=== PATIENT | female | born 1955 | race Hispanic/Latino ===

== ENCOUNTER 2023-02-20 06:13 | Day surgery (SDC) | payer OTHER ==
[2023-02-15 15:07] LABS: BASOPHILS # (AUTO) 0.05 K/uL (0.00-0.20); BASOPHILS % (AUTO) 0.6 % (0.0-5.0); EOSINOPHILS # (AUTO) 0.27 K/uL (0.00-0.70); EOSINOPHILS % (AUTO) 3.1 % (0.0-8.0); HEMATOCRIT 42.8 % (36-48); IMMATURE GRANULOCYTE ABSOLUTE 0.04 K/uL (0-1); LYMPHOCYTES # (AUTO) 2.5 K/uL (1.0-4.8); LYMPHOCYTES % (AUTO) 28.6 % (21.0-51.0); MEAN CORPUSCULAR HGB CONC 30.6 g/dL (32.0-36.0); MEAN CORPUSCULAR VOLUME 88.1 fL (79-99); MONOCYTES # (AUTO) 0.7 K/uL (0.1-1.0); MONOCYTES % (AUTO) 8.4 % (3.0-13.0); NEUTROPHILS # (AUTO) 5.2 K/uL (1.8-7.7); NEUTROPHILS % (AUTO) 58.8 % (40.0-77.0); PLATELET COUNT (AUTO) 361 K/uL (130-400); RED BLOOD CELL COUNT(AUTO) 4.86 MIL/uL (4.00-5.50); RED CELL DISTRIBUTION WIDTH 14.6 % (11.0-15.5); WHITE BLOOD COUNT (AUTO) 8.8 K/uL (4.8-10.8)
[2023-02-15 15:12] VITALS: PULSE 60; RESP 20
[2023-02-15 15:17] LABS: CREATININE 0.6 mg/dL (0.5-1.5)
[2023-02-15 15:18] LABS: INR 1.04 (0.85-1.15)
[2023-02-15 15:19] LABS: PARTIAL THROMBOPLASTIN TIME 30.4 SEC (26.3-35.5)
[~2023-02-20] VITALS: Ht 152.4 cm; Wt 72.6 kg
[2023-02-20] VITALS (17 sets, daily range): BP systolic 129–174; BP diastolic 67–90; PULSE 61–93; RESP 13–22
[~2023-02-20 06:13] MED LIST: GABA-529 PO; LISI20TA24 PO
[2023-02-20] MEDS ORDERED: MEROPENEM 1 GM VIAL ONE (06:55)
[2023-02-20] MEDS ORDERED: LACTATED RINGERS 1000ML 1,000 ML IV ONE (06:55)
[2023-02-20] MEDS ORDERED: INVANZ 1GM+NS 50ML IVPB 50 ML IV ONE (07:00)
[2023-02-20] MEDS ORDERED: BUPIVACAINE/PF 0.5% 30ML VIAL ONE (07:32)
[2023-02-20] MEDS ORDERED: LIDOCAINE HCL 1% MDV 50ML VIAL ONE (07:33)
[2023-02-20] MEDS ORDERED: PROPOFOL 10 MG/ML 20ML VIAL IV ONE (07:53)
[2023-02-20] MEDS ORDERED: MIDAZOLAM HCL 1 MG/ML 2ML VIAL ONE (07:53)
[2023-02-20] MEDS ORDERED: FENTANYL CITRATE PF 50 MCG/1 ML 2ML VIAL ONE (07:54)
[2023-02-20] MEDS ORDERED: ROCURONIUM BROMIDE 10MG/1ML 5ML VL ONE (08:03)
[2023-02-20] MEDS ORDERED: GLYCOPYRROLATE 1 MG/5 ML SYRINGE ONE (08:17)
[2023-02-20] MEDS ORDERED: NEOSTIGMINE 5MG/5ML SYR IV ONE (08:33)
[2023-02-20] MEDS ORDERED: HYDRALAZINE 20MG/ML VIAL ONE (09:09)
== END 2023-02-20 10:55 | disposition home or self-care (01) ==
LOC: DAH 06:13
PROVIDERS: ATTEND Surgery
DX: R15.9 Full incontinence of feces (principal); L85.9 Epidermal thickening, unspecified; K62.3 Rectal prolapse; L29.0 Pruritus ani; K62.89 Other specified diseases of anus and rectum; K64.1 Second degree hemorrhoids; A63.0 Anogenital (venereal) warts; I10 Essential (primary) hypertension; Z79.899 Other long term (current) drug therapy; Z82.49 Family history of ischemic heart disease and other diseases of the circulatory system; Z80.9 Family history of malignant neoplasm, unspecified; Z72.89 Other problems related to lifestyle; Z90.711 Acquired absence of uterus with remaining cervical stump; Z98.890 Other specified postprocedural states
CPT/HCPCS: 80048; 85025; 85610; 85730; 36415; 93005; 45100; 64430; 88304; A6260; A4663; A4606; J7120; J3010; J3490 ×3; J2710; J0360; J2250; J2704; J0665; J2185; A4649 ×2; A4930; A4215; A4223; A4222; A4221; J1335